=== PATIENT | male | born 1955 | race African-American/Black ===

== ENCOUNTER 2016-06-06 22:59 | Observation (INO) | payer OTHER ==
[~2016-06-06] VITALS: Ht 182.9 cm; Wt 85.3 kg
[~2016-06-06 22:59] MED LIST: ADULT LOW DOSE81 M1 PO; ALEVE220 MG PO; AMLODIPINE BESY10 MG PO; APRESOLINE25 MG PO; ASPIRIN E.C.81 M1 PO; ASPIRIN81 M1 PO; ATORVASTATIN CA20 MG PO; BACTRIM,SEPT1 TABLE1 PO; BENADRYL25 MG PO; BENICAR20 MG PO; CATAPRES0.1 MG PO; CIPRO250 MG PO; CLEOCIN300 MG PO; CLONIDINE HCL0.1 MG PO; COLCHICINE0.6 MG PO; CRESTOR20 MG PO; DIALYVITE TABL1 EACH PO; DOXAZOSIN MESYLA2 MG PO; DRISDOL50000 UNIT PO; FAMOTIDINE20 MG PO; FUROSEMIDE40 MG PO; GLYBURIDE5 MG PO; K-DUR20 MEQ PO; LASIX20 MG PO; LASIX40 MG PO; LEVEMIR FL100 UNITS/ SC; LEVEMIR100 UNIT/2 SC; LEVEMIR100 UNIT/2 SQ; LOPRESSOR25 MG PO; LORTAB 5-325 M1 EACH PO; LOTENSIN40 MG PO; Lasix PO; MEDROL DOSEPAK4 MG PO; METOPROLOL SUCC25 MG PO; METOPROLOL TART50 MG PO; METRONIDAZOLE500 MG PO; MULTIVITAMIN1 EAC2 PO; MYCOPHENOLIC A180 MG PO; MYFORTIC180 MG PO; Maxipime IV; NABI650T PO; NEPHRO-VITE,1 TABLET PO; NORCO 5/3251 TABLET PO; NORVASC10 MG PO; NOVOLOG 10100 UNITS/ SC; NOVOLOG MI100 UNIT/4 SC; NOVOLOG100 UNIT/2 SQ; OXYCODONE HCL5 MG PO; PLETAL50 MG PO; PROGRAF1 MG PO; PROTONIX40 MG PO; RENVELA800 MG PO; SENSIPAR30 MG PO; SODIUM BICARBO325 MG PO; TACROLIMUS ANH0.5 MG PO; TACROLIMUS ANHYD1 MG PO; TYLENOL EXTRA500 MG PO; Tylenol Regular Stre PO; VALCYTE450 MG PO; VANCOCIN HCL125 MG PO; VANCOMYCIN HCL1 GM IV; VANCOMYCIN HCL125 MG PO; VANCOMYCIN PD; VANCOMYCIN125 MG/2.5 PO; VENOFER20 MG/ML IV; Vicodin,Lortab 5/500 PO; ZEMPLAR5 MCG/ML IV; ZOCOR20 MG PO; Zocor PO
[2016-06-06 23:23] LABS: HEMATOCRIT 35.5 % (38.0-50.0); MCH 24.1 PG (29.0-34.0); MCHC 33.8 G/DL (30.0-36.0); MCV 71.4 FL (86-99); MEAN PLAT.VOLUME 10.8 uM^3 (9.0-12.4); PLATELET COUNT 214 K/uL (156-360); RBC DIS.WIDTH-SD 43.1 % (39-53); RED BLOOD COUNT 4.97 M/uL (4.00-5.50); WHITE BLOOD COUNT 7.1 K/uL (4.1-10.2)
[2016-06-06 23:37] LABS: CHLORIDE 103 mEq/L (99-109); SODIUM 136 mEq/L (136-147)
[2016-06-06 23:39] LABS: GLUCOSE 149 mg/dL (70-99)
[2016-06-06 23:40] LABS: ANION GAP 16 MEQ/L (2-14)
[2016-06-06 23:43] LABS: GFR ESTIMATE (CALCULATED) 47 mL/min/; TROP-I INTERPRETATION NEGATIVE; TROPONIN-I < 0.01 ng/mL (0.0-0.30); UREA NITROGEN (BUN) 39 mg/dL (9-23)
[2016-06-07 02:45] LABS: MAGNESIUM 2.2 mg/dL (1.3-2.7)
[2016-06-07 02:48] LABS: TOTAL BILIRUBIN 0.6 mg/dL (0.0-1.0)
[2016-06-07 02:49] LABS: ALKALINE PHOSPHATASE 116 IU/L (3-129)
[2016-06-07 02:52] LABS: DIRECT BILIRUBIN 0.2 mg/dL (0.0-0.3)
[2016-06-07] MEDS ORDERED: PROGRAF1 MG PO ×2 (05:46)
[2016-06-07] MEDS ORDERED: HYDRALAZINE HC100 MG PO (05:47)
[2016-06-07] MEDS ORDERED: BENAZEPRIL HCL20 MG PO (05:49)
[2016-06-07 06:04] LABS: TROP-I INTERPRETATION NEGATIVE; TROPONIN-I 0.02 ng/mL (0.0-0.30)
[2016-06-07] MEDS ORDERED: CLONIDINE HCL0.1 MG PO (08:00)
[2016-06-07] MEDS ORDERED: HUMULIN N100 UNITS/ SC (08:01)
[2016-06-07] MEDS ORDERED: LEVEMIR100 UNIT/2 SC (08:01)
[2016-06-07] MEDS ORDERED: CILOSTAZOL50 MG PO (08:01)
[2016-06-07 11:51] LABS: TROP-I INTERPRETATION NEGATIVE; TROPONIN-I < 0.01 ng/mL (0.0-0.30)
[2016-06-07] MEDS ORDERED: NEURONTIN300 MG PO (12:14)
[2016-06-07 12:38] VITALS: BP 155/78
== END 2016-06-07 12:16 | disposition home or self-care (01) ==
LOC: EME 22:59 → EDOF 06-07 04:05
PROVIDERS: Internal Medicine; Physician Assistant
DX: R07.89 Other chest pain (principal); R25.2 Cramp and spasm; Z94.0 Kidney transplant status; N17.9 Acute kidney failure, unspecified; I10 Essential (primary) hypertension; E11.9 Type 2 diabetes mellitus without complications; Z88.6 Allergy status to analgesic agent; Z88.8 Allergy status to other drugs, medicaments and biological substances; Z83.3 Family history of diabetes mellitus; Z86.19 Personal history of other infectious and parasitic diseases
CPT/HCPCS: 71020; 80048; 80076; 82607; 82948; 83735; 84100; 84484; 85027; 93005; 99281; 99285; G0378; J1644; J1815; J7030; J7040; J7507; J7518

== ENCOUNTER 2016-11-02 23:44 | Inpatient (IN) | payer OTHER ==
[~2016-11-02] VITALS: Ht 182.9 cm; Wt 80.8 kg
[~2016-11-02 23:44] MED LIST changes: +BENAZEPRIL HCL20 MG PO; +CILOSTAZOL50 MG PO; +HUMULIN N100 UNITS/ SC; +HYDRALAZINE HC100 MG PO; +NEURONTIN300 MG PO
[2016-11-03] VITALS (7 sets, daily range): BP systolic 132–159; BP diastolic 62–70
[2016-11-03 00:25] LABS: EOSINOPHIL (%) 3.2 % (0-5); EOSINOPHIL COUNT 0.1 K/uL (0-0.3); HEMATOCRIT 29.3 % (38.0-50.0); IMMATURE GRANULOCYTE (%) 0.5 % (0.0-0.7); INSTRUMENT ABS NEUTROPHIL CT 2.1 K/uL; LYMPHOCYTE COUNT 1.1 K/uL (1.0-2.8); MCH 24.3 PG (29.0-34.0); MCHC 31.4 G/DL (30.0-36.0); MCV 77.3 FL (86-99); MEAN PLAT.VOLUME 11.2 uM^3 (9.0-12.4); MONOCYTE (%) 11.4 % (3-12); MONOCYTE COUNT 0.4 K/uL (0-0.8); NEUTROPHIL (%) 56.6 % (45-76); NEUTROPHIL COUNT 2.1 K/uL (1.8-6.4); PLATELET COUNT 148 K/uL (156-360); RBC DIS.WIDTH-SD 39.7 % (39-53); RED BLOOD COUNT 3.79 M/uL (4.00-5.50); WHITE BLOOD COUNT 3.8 K/uL (4.1-10.2)
[2016-11-03 00:37] LABS: CHLORIDE 103 mEq/L (99-109); POTASSIUM 5.4 mEq/L (3.7-5.4); SODIUM 127 mEq/L (136-147)
[2016-11-03 00:38] LABS: MAGNESIUM 2.5 mg/dL (1.3-2.7)
[2016-11-03 00:40] LABS: GLUCOSE 50 mg/dL (70-99)
[2016-11-03 00:41] LABS: ANION GAP 7 MEQ/L (2-14); TOTAL BILIRUBIN 0.4 mg/dL (0.0-1.0)
[2016-11-03 00:43] LABS: ALKALINE PHOSPHATASE 75 IU/L (3-129); GFR ESTIMATE (CALCULATED) 42 mL/min/
[2016-11-03 00:44] LABS: UREA NITROGEN (BUN) 59 mg/dL (9-23)
[2016-11-03 00:48] LABS: TROP-I INTERPRETATION NEGATIVE; TROPONIN-I < 0.01 ng/mL (0.0-0.30)
[2016-11-03] MEDS ORDERED: OXYCODONE HCL5 MG PO (01:48)
[2016-11-03] MEDS ORDERED: NOVOLIN N100 UNITS/ SC (01:49)
[2016-11-03] MEDS ORDERED: ERGOCALCIF50000 UNIT PO (01:49)
[2016-11-03] MEDS ORDERED: FUROSEMIDE20 MG PO (01:50)
[2016-11-03] MEDS ORDERED: MEN 50 PLUS MU1 EACH PO (01:50)
[2016-11-03 03:41] LABS: HDL CHOLESTEROL 35 MG/DL (Desirable>=40); LDL CHOLESTEROL 36 mg/dL (Desirable<100); NON-HDL CHOLESTEROL 63 mg/dL (Desirable<160); TOTAL CHOLESTEROL 98 mg/dL (Desirable<200); TRIGLYCERIDES 137 MG/DL (Normal: <150)
[2016-11-03 04:05] LABS: POINT-OF-CARE METER ID UU13113702; POINT-OF-CARE USER ID NUTMMM10
[2016-11-03 05:48] LABS: POINT-OF-CARE METER ID UU13113831
[2016-11-03 06:31] LABS: HEMATOCRIT 30.2 % (38.0-50.0); MCH 24.9 PG (29.0-34.0); MCHC 31.1 G/DL (30.0-36.0); MCV 79.9 FL (86-99); MEAN PLAT.VOLUME 11.7 uM^3 (9.0-12.4); PLATELET COUNT 138 K/uL (156-360); RBC DIS.WIDTH-CV 14.2 % (11.8-14.6); RBC DIS.WIDTH-SD 41.5 % (39-53); RED BLOOD COUNT 3.78 M/uL (4.00-5.50); WHITE BLOOD COUNT 3.2 K/uL (4.1-10.2)
[2016-11-03 08:11] LABS: ADD MIUA? NO; BILIRUBIN NEGATIVE; BLOOD NEGATIVE; COLOR COLORLESS ((YELLOW)); GLUCOSE (STRIP) NEGATIVE; KETONES NEGATIVE; LEUKOCYTES NEGATIVE; NITRITE NEGATIVE; PROTEIN (STRIP) NEGATIVE; SPECIFIC GRAVITY 1.003 (1.000-1.030); UCUL ADDED? NO; UROBILINOGEN 0.2 MG/DL (0.2-1.0)
[2016-11-03 09:45] LABS: ANION GAP 8 MEQ/L (2-14); CHLORIDE 103 MEQ/L (99-109); GFR ESTIMATE (CALCULATED) 50 mL/min/; POTASSIUM 5.6 MEQ/L (3.7-5.4); SAMPLE HEMOLYSIS CHECK 0; SAMPLE ICTERIC CHECK 0; SAMPLE LIPEMIA CHECK 0; SODIUM 127 MEQ/L (136-147); UREA NITROGEN (BUN) 54 mg/dL (9-23)
[2016-11-03 10:00] LABS: GLUCOSE 112 mg/dL (70-99)
[2016-11-03 10:12] LABS: TROP-I INTERPRETATION NEGATIVE; TROPONIN-I < 0.01 ng/mL (0.0-0.30)
[2016-11-03 11:09] LABS: Estimated Average Glucose 171 mg/dL (70-123); HEMOGLOBIN A1c (GLYCOHEMOGLOB) 7.6 % HGB (Below 5.7)
[2016-11-03 12:29] LABS: POINT-OF-CARE METER ID UU13113831
[2016-11-03 13:15] LABS: TROP-I INTERPRETATION NEGATIVE; TROPONIN-I < 0.01 ng/mL (0.0-0.30)
[2016-11-03 17:30] LABS: POINT-OF-CARE METER ID UU14162513
[2016-11-04 04:05] VITALS: BP 158/70
[2016-11-04 08:14] VITALS: BP 150/71
[2016-11-04 09:54] LABS: EOSINOPHIL (%) 3.6 % (0-5); EOSINOPHIL COUNT 0.1 K/uL (0-0.3); HEMATOCRIT 31.2 % (38.0-50.0); IMMATURE GRANULOCYTE (%) 0.4 % (0.0-0.7); INSTRUMENT ABS NEUTROPHIL CT 1.8 K/uL; LYMPHOCYTE COUNT 0.6 K/uL (1.0-2.8); MCH 25.4 PG (29.0-34.0); MCHC 31.7 G/DL (30.0-36.0); MEAN PLAT.VOLUME 11.3 uM^3 (9.0-12.4); MONOCYTE (%) 8.2 % (3-12); MONOCYTE COUNT 0.2 K/uL (0-0.8); NEUTROPHIL (%) 65.2 % (45-76); NEUTROPHIL COUNT 1.8 K/uL (1.8-6.4); PLATELET COUNT 130 K/uL (156-360); RBC DIS.WIDTH-CV 14.4 % (11.8-14.6); RBC DIS.WIDTH-SD 41.6 % (39-53); WHITE BLOOD COUNT 2.8 K/uL (4.1-10.2)
[2016-11-04 10:24] LABS: ALKALINE PHOSPHATASE 72 IU/L (3-129); ANION GAP 8 MEQ/L (2-14); CHLORIDE 112 MEQ/L (99-109); GFR ESTIMATE (CALCULATED) 47 mL/min/; GLUCOSE 168 mg/dL (70-99); POTASSIUM 5.7 MEQ/L (3.7-5.4); SAMPLE HEMOLYSIS CHECK 0; SAMPLE ICTERIC CHECK 0; SAMPLE LIPEMIA CHECK 0; SODIUM 137 MEQ/L (136-147); TOTAL BILIRUBIN 0.4 MG/DL (0.0-1.0); UREA NITROGEN (BUN) 47 mg/dL (9-23)
[2016-11-04 16:37] VITALS: BP 162/72
[2016-11-04 17:19] LABS: POINT-OF-CARE METER ID UU14174225
== END 2016-11-04 18:25 | disposition home or self-care (01) | DRG 641 ==
LOC: EME 23:44 → EDOF 11-03 02:14 → 5WEST 11-03 04:18 → 5SOUTH 11-03 20:29
PROVIDERS: Emergency Medicine; Hospitalist; Internal Medicine
DX: E87.1 Hypo-osmolality and hyponatremia (principal); N17.9 Acute kidney failure, unspecified; E11.22 Type 2 diabetes mellitus with diabetic chronic kidney disease; I12.9 Hypertensive chronic kidney disease with stage 1 through stage 4 chronic kidney disease, or unspecified chronic kidney disease; N18.3 Chronic kidney disease, stage 3 (moderate); T45.1X5A Adverse effect of antineoplastic and immunosuppressive drugs, initial encounter; E78.5 Hyperlipidemia, unspecified; E87.2 Acidosis; E87.5 Hyperkalemia; N25.81 Secondary hyperparathyroidism of renal origin; R06.02 Shortness of breath; E11.42 Type 2 diabetes mellitus with diabetic polyneuropathy; E11.319 Type 2 diabetes mellitus with unspecified diabetic retinopathy without macular edema; E11.21 Type 2 diabetes mellitus with diabetic nephropathy; R07.89 Other chest pain; E78.00 Pure hypercholesterolemia, unspecified; D63.1 Anemia in chronic kidney disease; E11.649 Type 2 diabetes mellitus with hypoglycemia without coma; D61.818 Other pancytopenia; I44.1 Atrioventricular block, second degree; Z94.0 Kidney transplant status; Z83.3 Family history of diabetes mellitus; Z86.73 Personal history of transient ischemic attack (TIA), and cerebral infarction without residual deficits; Z79.4 Long term (current) use of insulin; Z87.891 Personal history of nicotine dependence
CPT/HCPCS: 71020; 80048 91; 80053; 80061; 80197 90; 81003; 82948; 83036; 83735; 84100; 84484; 85025; 85027; 93005; 99281; 99285; J1644; J7030; J7507; J7518; S0028

== ENCOUNTER 2016-12-04 02:29 | Emergency (ER) | payer OTHER ==
[~2016-12-04] VITALS: Ht 182.9 cm; Wt 84.0 kg
[~2016-12-04 02:29] MED LIST changes: +ERGOCALCIF50000 UNIT PO; +FUROSEMIDE20 MG PO; +MEN 50 PLUS MU1 EACH PO; +NOVOLIN N100 UNITS/ SC
[2016-12-04 05:16] LABS: HEMATOCRIT 31.6 % (38.0-50.0); MCH 24.7 PG (29.0-34.0); MCV 77.3 FL (86-99); MEAN PLAT.VOLUME 11.9 uM^3 (9.0-12.4); PLATELET COUNT 199 K/uL (156-360); RBC DIS.WIDTH-CV 13.5 % (11.8-14.6); RBC DIS.WIDTH-SD 38.2 % (39-53); RED BLOOD COUNT 4.09 M/uL (4.00-5.50); WHITE BLOOD COUNT 6.7 K/uL (4.1-10.2)
[2016-12-04 05:29] LABS: CHLORIDE 106 mEq/L (99-109); SODIUM 136 mEq/L (136-147)
[2016-12-04 05:31] LABS: GLUCOSE 129 mg/dL (70-99)
[2016-12-04 05:32] LABS: ANION GAP 9 MEQ/L (2-14)
[2016-12-04 05:33] LABS: TOTAL BILIRUBIN 0.5 mg/dL (0.0-1.0)
[2016-12-04 05:34] LABS: ALKALINE PHOSPHATASE 107 IU/L (3-129); GFR ESTIMATE (CALCULATED) 50 mL/min/
[2016-12-04 05:35] LABS: UREA NITROGEN (BUN) 37 mg/dL (9-23)
[2016-12-04 05:37] LABS: URIC ACID 10.8 mg/dL (3.1-9.2)
[2016-12-04 05:38] LABS: LIPASE 20 U/L (1.0-51.0)
[2016-12-04 05:52] LABS: POTASSIUM 5.6 mEq/L (3.7-5.4)
[2016-12-04] MEDS ORDERED: PERCOCET 5/31 TABLET PO (06:05)
[2016-12-04 06:35] VITALS: BP 175/79
== END 2016-12-04 06:35 | disposition home or self-care (01) ==
LOC: EME 02:29
PROVIDERS: Emergency Medicine
DX: M10.9 Gout, unspecified (principal); E11.22 Type 2 diabetes mellitus with diabetic chronic kidney disease; I12.9 Hypertensive chronic kidney disease with stage 1 through stage 4 chronic kidney disease, or unspecified chronic kidney disease; N18.9 Chronic kidney disease, unspecified; Z94.0 Kidney transplant status; Z79.4 Long term (current) use of insulin; E78.5 Hyperlipidemia, unspecified; R79.89 Other specified abnormal findings of blood chemistry; D64.9 Anemia, unspecified; Z87.891 Personal history of nicotine dependence
CPT/HCPCS: 71020; 80053; 81003; 83690; 84550; 85027; 87502; 99281; 99284; J2270

== ENCOUNTER 2017-05-16 19:33 | Emergency (ER) | payer OTHER ==
[~2017-05-16] VITALS: Ht 182.9 cm; Wt 87.0 kg
[~2017-05-16 19:33] MED LIST changes: +PERCOCET 5/31 TABLET PO
[2017-05-16 20:35] LABS: HEMATOCRIT 32.4 % (38.0-50.0); MCH 24.3 PG (29.0-34.0); MCHC 32.1 G/DL (30.0-36.0); MCV 75.7 FL (86-99); MEAN PLAT.VOLUME 11.4 uM^3 (9.0-12.4); PLATELET COUNT 168 K/uL (156-360); RBC DIS.WIDTH-CV 16.6 % (11.8-14.6); RBC DIS.WIDTH-SD 45.4 % (39-53); RED BLOOD COUNT 4.28 M/uL (4.00-5.50); WHITE BLOOD COUNT 4.8 K/uL (4.1-10.2)
[2017-05-16 20:46] LABS: CHLORIDE 106 mEq/L (99-109); POTASSIUM 3.8 mEq/L (3.7-5.4); PROTHROMBIN TIME 10.8 SEC (10.2-12.9); SODIUM 138 mEq/L (136-147)
[2017-05-16 20:48] LABS: GLUCOSE 278 mg/dL (70-99); PTT 25.9 SEC (25-37)
[2017-05-16 20:49] LABS: ANION GAP 12 MEQ/L (2-14)
[2017-05-16 20:51] LABS: GFR ESTIMATE (CALCULATED) > 59 mL/min/ (58.99-99999)
[2017-05-16 20:52] LABS: UREA NITROGEN (BUN) 27 mg/dL (9-23)
[2017-05-16 20:56] LABS: TROP-I INTERPRETATION NEGATIVE; TROPONIN-I 0.01 ng/mL (0.0-0.30)
[2017-05-16 22:16] VITALS: BP 160/65
[2017-05-22] MEDS ORDERED: OXYCODONE-ACET1 EACH PO (15:16)
[2017-05-22] MEDS ORDERED: VITAFUSION GUMMY PO (15:22)
== END 2017-05-16 22:18 | disposition home or self-care (01) ==
LOC: EME 19:33
PROVIDERS: Physician Assistant Medical
DX: T82.898A Other specified complication of vascular prosthetic devices, implants and grafts, initial encounter (principal); Y83.2 Surgical operation with anastomosis, bypass or graft as the cause of abnormal reaction of the patient, or of later complication, without mention of misadventure at the time of the procedure; Z94.0 Kidney transplant status; E11.9 Type 2 diabetes mellitus without complications; E78.5 Hyperlipidemia, unspecified; I10 Essential (primary) hypertension; Z87.891 Personal history of nicotine dependence; Z79.4 Long term (current) use of insulin; Z88.5 Allergy status to narcotic agent; Z88.6 Allergy status to analgesic agent
CPT/HCPCS: 80048; 84484; 85027; 85610; 85730; 93005; 99281; 99284

== ENCOUNTER 2017-05-23 14:46 | Day surgery (SDC) | payer OTHER ==
[~2017-05-23] VITALS: Ht 182.9 cm; Wt 83.9 kg
[~2017-05-23 14:46] MED LIST changes: +OXYCODONE-ACET1 EACH PO; +VITAFUSION GUMMY PO
[2017-05-23] MEDS ORDERED: SODIUM BICARBO325 MG PO (15:41)
[2017-05-23 15:47] VITALS: BP 178/77
[2017-05-23 16:12] LABS: HEMATOCRIT 33.2 % (38.0-50.0); MCH 24.3 PG (29.0-34.0); MCHC 31.9 G/DL (30.0-36.0); MEAN PLAT.VOLUME 10.6 uM^3 (9.0-12.4); PLATELET COUNT 173 K/uL (156-360); RBC DIS.WIDTH-CV 16.4 % (11.8-14.6); RBC DIS.WIDTH-SD 45.5 % (39-53); RED BLOOD COUNT 4.37 M/uL (4.00-5.50); WHITE BLOOD COUNT 3.5 K/uL (4.1-10.2)
[2017-05-23 16:29] LABS: CHLORIDE 110 mEq/L (99-109); POTASSIUM 4.5 mEq/L (3.7-5.4); SODIUM 141 mEq/L (136-147)
[2017-05-23 16:30] LABS: GLUCOSE 164 mg/dL (70-99)
[2017-05-23 16:32] LABS: ANION GAP 10 MEQ/L (2-14)
[2017-05-23 16:34] LABS: GFR ESTIMATE (CALCULATED) > 59 mL/min/ (58.99-99999)
[2017-05-23 16:35] LABS: UREA NITROGEN (BUN) 23 mg/dL (9-23)
[2017-05-23 16:36] LABS: POINT-OF-CARE METER ID UU14174212; POINT-OF-CARE USER ID AHSRSCSLC11
[2017-05-23 18:35] LABS: POINT-OF-CARE METER ID UU13113675; POINT-OF-CARE USER ID ADMSLT55
[2017-05-23] MEDS ORDERED: NORCO 5/3251 TABLET PO (18:42)
[2017-05-23 19:00] VITALS: BP 178/83
[2017-05-23 19:32] VITALS: BP 186/86
== END 2017-05-23 19:45 | disposition home or self-care (01) ==
LOC: SDC 14:46
PROVIDERS: Surgery
DX: T82.858A Stenosis of other vascular prosthetic devices, implants and grafts, initial encounter (principal); I87.1 Compression of vein; I12.0 Hypertensive chronic kidney disease with stage 5 chronic kidney disease or end stage renal disease; E11.22 Type 2 diabetes mellitus with diabetic chronic kidney disease; N18.6 End stage renal disease; Z99.2 Dependence on renal dialysis; Z94.0 Kidney transplant status; E78.4 Other hyperlipidemia
CPT/HCPCS: 80048; 82948; 85027; C1725; C1769; C1887; C1894; J0690; J1644; J2405; J3010

== ENCOUNTER 2017-09-10 23:27 | Inpatient (IN) | payer OTHER ==
[~2017-09-10] VITALS: Ht 182.9 cm; Wt 93.9 kg
[~2017-09-10 23:27] MED LIST changes: +PROGRAF0.5 MG PO
[2017-09-10 23:56] LABS: HEMATOCRIT 32.4 % (38.0-50.0); HEMOGLOBIN 10.4 G/DL (12.5-16.6); MCH 24.8 PG (29.0-34.0); MCHC 32.1 G/DL (30.0-36.0); MCV 77.1 FL (86-99); PLATELET COUNT 170 K/uL (156-360); RBC DIS.WIDTH-CV 16.3 % (11.8-14.6); RBC DIS.WIDTH-SD 46.1 % (39-53); WHITE BLOOD COUNT 4.1 K/uL (4.1-10.2)
[2017-09-11 00:07] LABS: CHLORIDE 106 mEq/L (99-109); POTASSIUM 4.9 mEq/L (3.7-5.4); SODIUM 140 mEq/L (136-147)
[2017-09-11 00:09] LABS: GLUCOSE 225 mg/dL (70-99)
[2017-09-11 00:13] LABS: CREATININE 1.6 mg/dL (0.6-1.3); GFR ESTIMATE (CALCULATED) 57 mL/min/ (58.99-99999)
[2017-09-11 00:14] LABS: UREA NITROGEN (BUN) 38 mg/dL (9-23)
[2017-09-11 00:18] LABS: TROP-I INTERPRETATION NEGATIVE; TROPONIN-I 0.01 ng/mL (0.0-0.30)
[2017-09-11 05:36] VITALS: BP 171/77
[2017-09-11 07:11] LABS: TROP-I INTERPRETATION NEGATIVE; TROPONIN-I 0.02 ng/mL (0.0-0.30)
[2017-09-11 08:49] VITALS: BP 152/61
[2017-09-11 12:56] VITALS: BP 154/71
[2017-09-11 13:14] LABS: TROP-I INTERPRETATION NEGATIVE; TROPONIN-I 0.01 ng/mL (0.0-0.30)
[2017-09-11] MEDS ORDERED: CATAPRES0.1 MG PO (13:54)
[2017-09-11] MEDS ORDERED: BYSTOLIC2.5 MG PO (13:54)
[2017-09-11] MEDS ORDERED: ZYLOPRIM100 MG PO (13:54)
[2017-09-11] MEDS ORDERED: LONITEN2.5 MG PO (13:58)
[2017-09-11 16:00] VITALS: BP 143/66
[2017-09-11 17:11] LABS: APPEARANCE CLEAR ((CLEAR)); BILIRUBIN NEGATIVE; BLOOD SMALL; COLOR YELLOW ((YELLOW)); GLUCOSE (STRIP) NEGATIVE; KETONES NEGATIVE; LEUKOCYTES NEGATIVE; NITRITE NEGATIVE; PROTEIN (STRIP) NEGATIVE; UROBILINOGEN 0.2 MG/DL (0.2-1.0)
[2017-09-11 17:56] LABS: BACTERIA NONE SEEN /HPF; EPITHELIAL CELLS RARE /HPF; HYALINE CASTS 0-5 /LPF; MUCUS TRACE /LPF; RED BLOOD CELLS 0-5 /HPF (0-5); WHITE BLOOD CELLS 0-5 /HPF (0-5)
[2017-09-11 18:15] LABS: UR CREATININE CONCENTRATION 136.5 MG/DL
[2017-09-11 21:00] VITALS: BP 155/68
[2017-09-12 04:15] VITALS: BP 138/78
[2017-09-12 06:10] LABS: BASOPHIL (%) 0.6 % (0-1); EOSINOPHIL (%) 5.4 % (0-5); EOSINOPHIL COUNT 0.2 K/uL (0-0.3); HEMATOCRIT 32.3 % (38.0-50.0); IMMATURE GRANULOCYTE (%) 0.3 % (0.0-0.7); LYMPHOCYTE (%) 29.8 % (15-42); LYMPHOCYTE COUNT 0.9 K/uL (1.0-2.8); MCV 77.6 FL (86-99); MONOCYTE (%) 10.3 % (3-12); MONOCYTE COUNT 0.3 K/uL (0-0.8); NEUTROPHIL (%) 53.6 % (45-76); NEUTROPHIL COUNT 1.7 K/uL (1.8-6.4); PLATELET COUNT 159 K/uL (156-360); RBC DIS.WIDTH-CV 16.3 % (11.8-14.6); RBC DIS.WIDTH-SD 46.7 % (39-53); RED BLOOD COUNT 4.16 M/uL (4.00-5.50); WHITE BLOOD COUNT 3.1 K/uL (4.1-10.2)
[2017-09-12 06:33] LABS: ALBUMIN 3.4 G/DL (3.2-4.8); ALKALINE PHOSPHATASE 87 IU/L (3-129); ALT (GPT) 24 IU/L (3-49); AST (GOT) 24 IU/L (2-34); CHLORIDE 108 MEQ/L (99-109); CREATININE 1.5 MG/DL (0.6-1.3); GFR ESTIMATE (CALCULATED) > 59 mL/min/ (58.99-99999); PHOSPHORUS 4.8 mg/dL (2.5-4.9); POTASSIUM 4.4 MEQ/L (3.7-5.4); SODIUM 141 MEQ/L (136-147); TOTAL BILIRUBIN 0.4 MG/DL (0.0-1.0); TOTAL PROTEIN 5.7 G/DL (6.4-8.3); UREA NITROGEN (BUN) 39 mg/dL (9-23)
[2017-09-12 06:38] LABS: GLUCOSE 102 mg/dL (70-99)
[2017-09-12 08:30] VITALS: BP 157/70
[2017-09-12 12:38] VITALS: BP 160/68
[2017-09-12 16:42] VITALS: BP 172/78
[2017-09-12 21:44] VITALS: BP 168/72
[2017-09-12 23:50] VITALS: BP 148/66
[2017-09-13 03:43] VITALS: BP 171/74
[2017-09-13 04:57] LABS: CHLORIDE 108 mEq/L (99-109); SODIUM 140 mEq/L (136-147)
[2017-09-13 05:02] LABS: BASOPHIL (%) 0.7 % (0-1); EOSINOPHIL COUNT 0.2 K/uL (0-0.3); GLUCOSE 157 mg/dL (70-99); HEMOGLOBIN 10.4 G/DL (12.5-16.6); IMMATURE GRANULOCYTE (%) 0.2 % (0.0-0.7); LYMPHOCYTE (%) 27.3 % (15-42); LYMPHOCYTE COUNT 1.1 K/uL (1.0-2.8); MCH 24.5 PG (29.0-34.0); MCHC 31.5 G/DL (30.0-36.0); MCV 77.6 FL (86-99); MONOCYTE (%) 9.9 % (3-12); MONOCYTE COUNT 0.4 K/uL (0-0.8); NEUTROPHIL (%) 56.9 % (45-76); NEUTROPHIL COUNT 2.3 K/uL (1.8-6.4); PLATELET COUNT 168 K/uL (156-360); RBC DIS.WIDTH-CV 16.3 % (11.8-14.6); RBC DIS.WIDTH-SD 46.5 % (39-53); RED BLOOD COUNT 4.25 M/uL (4.00-5.50)
[2017-09-13 05:03] LABS: CREATININE 1.8 mg/dL (0.6-1.3); GFR ESTIMATE (CALCULATED) 50 mL/min/ (58.99-99999)
[2017-09-13 05:04] LABS: UREA NITROGEN (BUN) 46 mg/dL (9-23)
[2017-09-13 07:40] VITALS: BP 150/62
[2017-09-13] MEDS ORDERED: LABETALOL HCL200 MG PO (11:11)
[2017-09-13] MEDS ORDERED: FUROSEMIDE40 MG PO (11:12)
[2017-09-13] MEDS ORDERED: ASPIR-LOW81 MG PO (11:12)
== END 2017-09-13 13:02 | disposition home or self-care (01) | DRG 948 ==
LOC: EME 23:27 → EDOF 09-11 03:25 → 4EAST 09-11 03:25 → ENRESERV 09-11 03:31 → 4EAST 09-11 05:26 → ENRESERV 09-12 18:28 → 3EAST 09-12 20:16
PROVIDERS: Hospitalist; Internal Medicine; Physician Assistant
DX: R60.0 Localized edema (principal); T46.7X5A Adverse effect of peripheral vasodilators, initial encounter; T46.1X5A Adverse effect of calcium-channel blockers, initial encounter; R07.89 Other chest pain; T86.12 Kidney transplant failure; N17.9 Acute kidney failure, unspecified; N18.3 Chronic kidney disease, stage 3 (moderate); Y83.0 Surgical operation with transplant of whole organ as the cause of abnormal reaction of the patient, or of later complication, without mention of misadventure at the time of the procedure; I13.0 Hypertensive heart and chronic kidney disease with heart failure and stage 1 through stage 4 chronic kidney disease, or unspecified chronic kidney disease; I50.32 Chronic diastolic (congestive) heart failure; E11.42 Type 2 diabetes mellitus with diabetic polyneuropathy; E11.22 Type 2 diabetes mellitus with diabetic chronic kidney disease; E11.319 Type 2 diabetes mellitus with unspecified diabetic retinopathy without macular edema; E87.2 Acidosis; D50.9 Iron deficiency anemia, unspecified; D63.1 Anemia in chronic kidney disease; N25.81 Secondary hyperparathyroidism of renal origin; E55.9 Vitamin D deficiency, unspecified; E78.5 Hyperlipidemia, unspecified; M10.9 Gout, unspecified; F32.9 Major depressive disorder, single episode, unspecified; Z82.49 Family history of ischemic heart disease and other diseases of the circulatory system; Z83.3 Family history of diabetes mellitus; Z86.19 Personal history of other infectious and parasitic diseases; Z86.73 Personal history of transient ischemic attack (TIA), and cerebral infarction without residual deficits; Z87.891 Personal history of nicotine dependence
CPT/HCPCS: 71046; 76776; 80048; 80053; 81003; 82570; 82948; 83880; 84100; 84156; 84484; 85025; 85027; 93005; 93306; 93971; 99281; 99285; J1644; J1815; J1940; J7507; J7518

== ENCOUNTER 2017-09-19 10:34 | Day surgery (SDC) | payer OTHER ==
[~2017-09-19] VITALS: Ht 182.9 cm; Wt 93.8 kg
[~2017-09-19 10:34] MED LIST changes: +ASPIR-LOW81 MG PO; +BYSTOLIC2.5 MG PO; +LABETALOL HCL200 MG PO; +LONITEN2.5 MG PO; +ZYLOPRIM100 MG PO
[2017-09-19 10:59] VITALS: BP 169/69
[2017-09-19 11:20] LABS: HEMATOCRIT 34.3 % (38.0-50.0); HEMOGLOBIN 10.7 G/DL (12.5-16.6); MCH 24.3 PG (29.0-34.0); MCHC 31.2 G/DL (30.0-36.0); MCV 77.8 FL (86-99); PLATELET COUNT 171 K/uL (156-360); RBC DIS.WIDTH-CV 16.3 % (11.8-14.6); RED BLOOD COUNT 4.41 M/uL (4.00-5.50); WHITE BLOOD COUNT 3.8 K/uL (4.1-10.2)
[2017-09-19 11:40] LABS: CHLORIDE 106 MEQ/L (99-109); CREATININE 1.8 MG/DL (0.6-1.3); GFR ESTIMATE (CALCULATED) 50 mL/min/ (58.99-99999); POTASSIUM 4.3 MEQ/L (3.7-5.4); SODIUM 141 MEQ/L (136-147); UREA NITROGEN (BUN) 44 mg/dL (9-23)
[2017-09-19 11:43] LABS: GLUCOSE 48 mg/dL (70-99)
[2017-09-19 16:15] VITALS: BP 162/74
== END 2017-09-19 16:30 | disposition home or self-care (01) ==
LOC: SDC 10:34
PROVIDERS: Surgery
DX: T82.858A Stenosis of other vascular prosthetic devices, implants and grafts, initial encounter (principal); Y83.2 Surgical operation with anastomosis, bypass or graft as the cause of abnormal reaction of the patient, or of later complication, without mention of misadventure at the time of the procedure; E11.22 Type 2 diabetes mellitus with diabetic chronic kidney disease; I12.0 Hypertensive chronic kidney disease with stage 5 chronic kidney disease or end stage renal disease; N18.6 End stage renal disease; Z94.0 Kidney transplant status; E78.4 Other hyperlipidemia; Z87.891 Personal history of nicotine dependence; Z86.73 Personal history of transient ischemic attack (TIA), and cerebral infarction without residual deficits; Z79.82 Long term (current) use of aspirin; Z79.4 Long term (current) use of insulin
CPT/HCPCS: 80048; 82948; 85027; C1725; C1769; C1887; C1894; J0360; J0690; J1644; J2250; J3010

== ENCOUNTER 2017-10-04 11:11 | Inpatient (IN) | payer OTHER ==
[~2017-10-04] VITALS: Ht 175.3 cm; Wt 80.9 kg
[2017-10-04 13:17] LABS: HEMATOCRIT 41.3 % (38.0-50.0); MCH 24.4 PG (29.0-34.0); MCHC 32.4 G/DL (30.0-36.0); MCV 75.2 FL (86-99); PLATELET COUNT 163 K/uL (156-360); RBC DIS.WIDTH-CV 16.4 % (11.8-14.6); RBC DIS.WIDTH-SD 43.9 % (39-53); WHITE BLOOD COUNT 5.5 K/uL (4.1-10.2)
[2017-10-04 13:20] LABS: HEMOGLOBIN 13.4 G/DL (12.5-16.6); RED BLOOD COUNT 5.49 M/uL (4.00-5.50)
[2017-10-04 13:28] LABS: CHLORIDE 107 mEq/L (99-109); SODIUM 137 mEq/L (136-147)
[2017-10-04 13:29] LABS: GLUCOSE 190 mg/dL (70-99)
[2017-10-04 13:33] LABS: CREATININE 2.9 mg/dL (0.6-1.3); GFR ESTIMATE (CALCULATED) 29 mL/min/ (58.99-99999)
[2017-10-04 13:34] LABS: UREA NITROGEN (BUN) 76 mg/dL (9-23)
[2017-10-04 13:37] LABS: POTASSIUM 6.1 mEq/L (3.7-5.4)
[2017-10-04 14:42] LABS: CHLORIDE 105 mEq/L (99-109); SODIUM 137 mEq/L (136-147)
[2017-10-04 14:44] LABS: GLUCOSE 185 mg/dL (70-99)
[2017-10-04 14:48] LABS: CREATININE 2.9 mg/dL (0.6-1.3); GFR ESTIMATE (CALCULATED) 29 mL/min/ (58.99-99999)
[2017-10-04 14:49] LABS: UREA NITROGEN (BUN) 75 mg/dL (9-23)
[2017-10-04 17:36] LABS: CREATINE KINASE 239 IU/L (1-294)
[2017-10-04] MEDS ORDERED: LABETALOL HCL200 MG PO (18:24)
[2017-10-04 19:04] LABS: URIC ACID 7.3 mg/dL (3.1-9.2)
[2017-10-04 19:55] LABS: APPEARANCE CLEAR ((CLEAR)); BILIRUBIN NEGATIVE; BLOOD SMALL; COLOR STRAW ((YELLOW)); GLUCOSE (STRIP) 50; KETONES NEGATIVE; LEUKOCYTES NEGATIVE; NITRITE NEGATIVE; PROTEIN (STRIP) 30; SPECIFIC GRAVITY 1.008 (1.000-1.030); UROBILINOGEN 0.2 MG/DL (0.2-1.0)
[2017-10-04 19:57] LABS: ALBUMIN 4.4 g/dL (3.2-4.8)
[2017-10-04 19:58] LABS: CHLORIDE 108 mEq/L (99-109); POTASSIUM 5.4 mEq/L (3.7-5.4); SODIUM 136 mEq/L (136-147)
[2017-10-04 19:58] LABS: BACTERIA NONE SEEN /HPF; EPITHELIAL CELLS RARE /HPF; MUCUS NONE SEEN /LPF; RED BLOOD CELLS 0-5 /HPF (0-5); UCUL ADDED? NO; WHITE BLOOD CELLS 0-5 /HPF (0-5)
[2017-10-04 20:00] LABS: GLUCOSE 141 mg/dL (70-99)
[2017-10-04 20:03] LABS: CREATININE 2.9 mg/dL (0.6-1.3); GFR ESTIMATE (CALCULATED) 29 mL/min/ (58.99-99999); PHOSPHORUS 4.2 mg/dL (2.5-4.9)
[2017-10-04 20:04] LABS: UREA NITROGEN (BUN) 77 mg/dL (9-23)
[2017-10-04 21:17] VITALS: BP 169/74
[2017-10-04 21:26] VITALS: BP 169/74
[2017-10-04 23:42] VITALS: BP 181/84
[2017-10-05 04:00] VITALS: BP 154/69
[2017-10-05 05:58] LABS: ALBUMIN 3.7 G/DL (3.2-4.8); CHLORIDE 106 MEQ/L (99-109); MAGNESIUM 1.9 mg/dl (1.3-2.7); PHOSPHORUS 4.3 mg/dL (2.5-4.9); POTASSIUM 5.4 MEQ/L (3.7-5.4); SODIUM 135 MEQ/L (136-147); UREA NITROGEN (BUN) 81 mg/dL (9-23); URIC ACID 6.8 mg/dL (3.1-9.2)
[2017-10-05 06:10] LABS: CREATININE 2.4 MG/DL (0.6-1.3); GFR ESTIMATE (CALCULATED) 36 mL/min/ (58.99-99999); GLUCOSE 350 mg/dL (70-99)
[2017-10-05 07:51] VITALS: BP 155/72
[2017-10-05 11:40] VITALS: BP 143/65
[2017-10-05 15:51] VITALS: BP 163/59
[2017-10-05 20:00] VITALS: BP 220/95
[2017-10-05 23:32] VITALS: BP 144/63
[2017-10-06 03:58] VITALS: BP 158/70
[2017-10-06 07:28] LABS: ALBUMIN 3.7 G/DL (3.2-4.8); CHLORIDE 107 MEQ/L (99-109); CREATININE 2.1 MG/DL (0.6-1.3); GFR ESTIMATE (CALCULATED) 42 mL/min/ (58.99-99999); IRON 66 MCG/DL (35-150); MAGNESIUM 1.9 mg/dl (1.3-2.7); PHOSPHORUS 4.2 mg/dL (2.5-4.9); SODIUM 139 MEQ/L (136-147); TRANSFERRIN (TIBC) 164.3 mg/dL (215-380); TRANSFERRIN SATUR. 40 % (20-55); UREA NITROGEN (BUN) 64 mg/dL (9-23)
[2017-10-06 07:29] LABS: GLUCOSE 126 mg/dL (70-99); INTACT PARATHYROID HORMONE 168 pg/mL (10-69); POTASSIUM 4.2 MEQ/L (3.7-5.4)
[2017-10-06 07:43] VITALS: BP 174/76
[2017-10-06 07:54] LABS: FERRITIN 938 NG/ML (22-322)
[2017-10-06 10:48] VITALS: BP 139/70
[2017-10-06 14:46] VITALS: BP 172/71
[2017-10-06 19:52] VITALS: BP 178/68
[2017-10-07] VITALS (7 sets, daily range): BP systolic 158–194; BP diastolic 70–86
[2017-10-07 05:43] LABS: ALBUMIN 4.2 G/DL (3.2-4.8); CHLORIDE 110 MEQ/L (99-109); CREATININE 1.9 MG/DL (0.6-1.3); GFR ESTIMATE (CALCULATED) 47 mL/min/ (58.99-99999); GLUCOSE 114 mg/dL (70-99); PHOSPHORUS 4.3 mg/dL (2.5-4.9); POTASSIUM 4.7 MEQ/L (3.7-5.4); SODIUM 140 MEQ/L (136-147); UREA NITROGEN (BUN) 61 mg/dL (9-23)
[2017-10-08 00:52] VITALS: BP 169/71
[2017-10-08 05:21] VITALS: BP 200/86
[2017-10-08 06:01] LABS: ALBUMIN 4.2 G/DL (3.2-4.8); CHLORIDE 110 MEQ/L (99-109); CREATININE 1.6 MG/DL (0.6-1.3); GFR ESTIMATE (CALCULATED) 57 mL/min/ (58.99-99999); GLUCOSE 89 mg/dL (70-99); PHOSPHORUS 3.9 mg/dL (2.5-4.9); POTASSIUM 4.9 MEQ/L (3.7-5.4); SODIUM 143 MEQ/L (136-147); UREA NITROGEN (BUN) 53 mg/dL (9-23)
[2017-10-08 06:08] VITALS: BP 170/76
[2017-10-08 07:48] VITALS: BP 176/76
[2017-10-08 08:51] VITALS: BP 156/70
[2017-10-08 12:05] VITALS: BP 142/78
[2017-10-08] MEDS ORDERED: CLONIDINE HCL0.2 MG PO (14:42)
[2017-10-08] MEDS ORDERED: APRESOLINE25 MG PO (14:43)
[2017-10-08] MEDS ORDERED: PROGRAF0.5 MG PO (14:46)
== END 2017-10-08 15:20 | disposition home or self-care (01) | DRG 917 ==
LOC: EME 11:11 → EDOF 16:45 → ENRESERV 16:51 → 4EAST 20:33
PROVIDERS: Emergency Medicine; Hospitalist; Internal Medicine; Internal Medicine Nephrology; Nurse Practitioner Family
DX: T45.1X1A Poisoning by antineoplastic and immunosuppressive drugs, accidental (unintentional), initial encounter (principal); N17.9 Acute kidney failure, unspecified; T86.12 Kidney transplant failure; Y83.0 Surgical operation with transplant of whole organ as the cause of abnormal reaction of the patient, or of later complication, without mention of misadventure at the time of the procedure; E87.5 Hyperkalemia; I16.0 Hypertensive urgency; I13.2 Hypertensive heart and chronic kidney disease with heart failure and with stage 5 chronic kidney disease, or end stage renal disease; I50.9 Heart failure, unspecified; N18.6 End stage renal disease; E11.22 Type 2 diabetes mellitus with diabetic chronic kidney disease; Z91.14 Patient's other noncompliance with medication regimen; Z91.11 Patient's noncompliance with dietary regimen; Z91.19 Patient's noncompliance with other medical treatment and regimen; I70.1 Atherosclerosis of renal artery; E87.2 Acidosis; E11.42 Type 2 diabetes mellitus with diabetic polyneuropathy; E11.319 Type 2 diabetes mellitus with unspecified diabetic retinopathy without macular edema; N25.81 Secondary hyperparathyroidism of renal origin; E86.0 Dehydration; D63.1 Anemia in chronic kidney disease; E20.9 Hypoparathyroidism, unspecified; E78.5 Hyperlipidemia, unspecified; E55.9 Vitamin D deficiency, unspecified; M10.9 Gout, unspecified; R11.2 Nausea with vomiting, unspecified; R07.9 Chest pain, unspecified; Z79.4 Long term (current) use of insulin; Z83.3 Family history of diabetes mellitus; Z82.49 Family history of ischemic heart disease and other diseases of the circulatory system; Z86.73 Personal history of transient ischemic attack (TIA), and cerebral infarction without residual deficits; Z87.891 Personal history of nicotine dependence
CPT/HCPCS: 70450; 71045; 76776; 80048; 80048 91; 80069; 80197 90; 81003; 82306; 82550; 82550 91; 82728; 82948; 83540; 83735; 83970; 84466; 84550; 85027; 93005; 99281; 99285; J0360; J0780; J1200; J1644; J1815; J7030; J7070; J7507; J7518

== ENCOUNTER 2017-11-03 01:05 | Emergency (ER) | payer OTHER ==
[~2017-11-03] VITALS: Ht 188 cm; Wt 85.0 kg
[~2017-11-03 01:05] MED LIST changes: +CLONIDINE HCL0.2 MG PO
[2017-11-03 02:08] LABS: APPEARANCE CLEAR ((CLEAR)); BILIRUBIN NEGATIVE; BLOOD NEGATIVE; COLOR YELLOW ((YELLOW)); GLUCOSE (STRIP) 50; KETONES NEGATIVE; LEUKOCYTES NEGATIVE; NITRITE NEGATIVE; PROTEIN (STRIP) 30; SPECIFIC GRAVITY 1.011 (1.000-1.030); UCUL ADDED? NO; UROBILINOGEN 0.2 MG/DL (0.2-1.0)
[2017-11-03 02:22] LABS: HEMATOCRIT 31.9 % (38.0-50.0); MCH 24.5 PG (29.0-34.0); MCHC 31.3 G/DL (30.0-36.0); MCV 78.2 FL (86-99); PLATELET COUNT 196 K/uL (156-360); RBC DIS.WIDTH-CV 16.2 % (11.8-14.6); RBC DIS.WIDTH-SD 46.4 % (39-53); RED BLOOD COUNT 4.08 M/uL (4.00-5.50); WHITE BLOOD COUNT 4.7 K/uL (4.1-10.2)
[2017-11-03 02:26] LABS: CHLORIDE 109 mEq/L (99-109); SODIUM 136 mEq/L (136-147)
[2017-11-03 02:28] LABS: GLUCOSE 163 mg/dL (70-99); TOTAL PROTEIN 7.7 g/dL (6.4-8.3)
[2017-11-03 02:30] LABS: TOTAL BILIRUBIN 0.4 mg/dL (0.0-1.0)
[2017-11-03 02:32] LABS: ALKALINE PHOSPHATASE 125 IU/L (3-129); CREATININE 1.7 mg/dL (0.6-1.3); GFR ESTIMATE (CALCULATED) 53 mL/min/ (58.99-99999)
[2017-11-03 02:33] LABS: UREA NITROGEN (BUN) 52 mg/dL (9-23)
[2017-11-03 02:34] LABS: AST (GOT) 27 IU/L (2-34)
[2017-11-03 02:35] LABS: ALT (GPT) 34 IU/L (3-49); LIPASE 14 U/L (1.0-51.0)
[2017-11-03 04:22] VITALS: BP 169/82
== END 2017-11-03 04:25 | disposition home or self-care (01) ==
LOC: EME → EDBD 01:05 → EME 01:05
PROVIDERS: Emergency Medicine
DX: E11.649 Type 2 diabetes mellitus with hypoglycemia without coma (principal); I12.9 Hypertensive chronic kidney disease with stage 1 through stage 4 chronic kidney disease, or unspecified chronic kidney disease; E11.22 Type 2 diabetes mellitus with diabetic chronic kidney disease; N18.9 Chronic kidney disease, unspecified; D64.9 Anemia, unspecified; Z79.4 Long term (current) use of insulin; Z94.0 Kidney transplant status; Z87.891 Personal history of nicotine dependence; E78.5 Hyperlipidemia, unspecified; Z88.6 Allergy status to analgesic agent; Z88.5 Allergy status to narcotic agent
CPT/HCPCS: 80053; 81003; 82948; 83690; 85027; 93005; 99281; 99284